=== PATIENT | male | born 1990 | race African-American/Black ===

== ENCOUNTER 2017-02-01 20:02 | Inpatient (IN) | payer OTHER ==
--- NOTE | ~2017-02-01 | DS ---
Unit #: [id number] #: [id number] Patient: MIRANDA RUBIO [id number] [facility] [address] [place] [address] [id number] I MR#: [id number] NAME: MIRANDA RUBIO ROOM: 61 Age: 26 Sex: M Admission Date: 02/01/2017 : 1990 Discharge Date: 02/03/2017 Attending Physician: Reymundo Lao M.D. DISCHARGE SUMMARY REASON FOR ADMISSION Depression and suicidal ideation. DIAGNOSTIC STUDIES CMP which was grossly within normal parameters. CBC that was within normal parameters with exception of MCA 27.9. Differential was within acceptable variation. Urinalysis was normal with exception of urobilinogen slightly elevated at 0.2. No other tests performed. HOSPITAL COURSE The patient was admitted for safety and stabilization for issues with depression. Patient's apparent stressors had been a breakup with a boyfriend recently and subsequent homelessness. It appears the patient has a history of depression in the past with intermittent treatment and has a diagnosis of HIV for which he has an upcoming appointment tomorrow 02/04/2017 to be in treatment. Patient's motivation apparently for this admission was not wanting to be homeless on the stress and he admitted so on the day of discharge. He had been placed on Wellbutrin SR 100 mg daily to help with the mood. He seemed to be tolerating it and benefiting from it. His sleep was normal. He was not having any active SI at time of discharge. Overall, patient reported mood improved and again some question of secondary gain being advanced at this point. But regardless at time of discharge patient's mood was "better." He was tolerating medications. No active SI. He had plans to follow up with [facility] for possible housing as provided by social media manager here in the hospital. DISCHARGE DIAGNOSES 1. Major depressive disorder, recurrent, severe without psychotic features. 2. HIV positive. 3. Rule out malingering. DISCHARGE INSTRUCTIONS Follow up care with community [facility] to be provided by manager social. DISCHARGE MEDICATIONS Wellbutrin SR 100 mg daily by mouth for depression. CONDITION AT DISCHARGE Improved. PROGNOSIS Unit #: [id number] #: [id number] Patient: MIRANDA RUBIO Fair. DIET AND ACTIVITY Diet is regular with activity as tolerated with compliance of treatment recommendations encouraged. Dictated by... Sagar Patino TD: 02/03/2017 12:37 JOB #: [id number] DISCHARGE SUMMARY Page 1 of 1 X Reymundo Lao MD X DISCHARGE SUMMARY
--- NOTE | ~2017-02-01 | HP ---
Unit #: [id number] #: [id number] Patient: CONRAD RUBIO [id number] [facility] [address] [place] [address] [id number] I MR#: [id number] NAME: CONRAD RUBIO ROOM: 61 Age: 26 Sex: M Admission Date: 02/01/2017 : 1990 Attending Physician: Reymundo Lao M.D. Admitting Physician: Reymundo Lao M.D. HISTORY AND PHYSICAL HISTORY OF PRESENT ILLNESS Conrad is a 26-year-old male admitted on 02/01/2017 to [facility] for suicidal ideation with a plan to overdose or cut his wrist. PAST MEDICAL HISTORY HIV PAST SURGICAL HISTORY None. SOCIAL HISTORY He is currently single, unemployed and homeless. No tobacco use. Does report occasional alcohol use and occasional marijuana use. FAMILY HISTORY Noncontributory. REVIEW OF SYSTEMS CONSTITUTIONAL: No fever or chills. HEENT: Denies any sore throat, ear pain or runny nose. CARDIOVASCULAR: Denies chest pain, irregular heart rhythm or palpitations. CHEST: Denies shortness of breath or cough. No hemoptysis. GASTROINTESTINAL: Denies nausea, vomiting, diarrhea or chronic constipation. ENDOCRINE: Denies history of increased thirst or urination. No recent significant weight loss or gain. GENITOURINARY: Denies dysuria, frequency, or hematuria. SKIN: Denies any rashes. HEMATOLOGIC: Denies history of increased bleeding or bruising. MUSCULOSKELETAL: Denies any hot, swollen joints. No generalized muscle pain. NEUROLOGIC: Denies problems with vision or speech. No frequent, severe headaches. No numbness, tingling or weakness in any extremities. Denies loss of bladder or bowel control. CURRENT MEDICATIONS None. ALLERGIES Shellfish. Unit #: [id number] #: [id number] Patient: CONRAD RUBIO PHYSICAL EXAMINATION GENERAL: Alert, oriented, in no acute distress. VITAL SIGNS: Blood pressure 111/61, heart rate 75, temperature 98.3. HEIGHT: 5 foot 11 inches. WEIGHT: 135 pounds. SKIN: Warm and dry without rash or lesion. HEENT: Normocephalic. TMs not viewed. Oral and nasal passages clear. Conjunctivae clear. PERRLA. EOMs intact. NECK: Supple without lymphadenopathy or thyromegaly. HEART: Regular rate and rhythm without murmur. LUNGS: Clear. ABDOMEN: Soft, nontender, without masses or hepatosplenomegaly. : Not done. EXTREMITIES: No evidence of cyanosis, clubbing or edema. Moves all without focal deficit. NEUROLOGICAL: Grossly within normal limits. Cranial Nerves: II: Visual sprague are intact. III, IV AND : Extraocular movements are intact. Pupils are equal, round and reactive to light. V: Facial sensation is grossly normal. VII: Facial movements and expression are normal. VIII: Auditory acuity grossly intact. IX, X: Uvula is midline. Phonation is normal. XI: Patient shrugs shoulders and turns head normally. XII: Tongue protrudes in the midline. Sensory and Motor Function: Sensory and motor sensation is grossly normal. Motor: moves all extremities well. Coordination: Gait is normal. Deep Tendon Reflexes: Intact. IMPRESSION 1. Psychiatric admission. 2. HIV positive. RECOMMENDATIONS Psychiatric, per psychiatrist. MEDICAL: I see no contraindications to participating in facility's activities. MEDICAL PROGNOSIS Good. MEDICAL CONDITION Stable. Dictated by... Sunni Bonilla TD: 02/02/2017 22:55 JOB #: [id number] Unit #: [id number] #: [id number] Patient: CONRAD RUBIO HISTORY AND PHYSICAL Page 1 of 1 X ALIE WHALEY APRN X HISTORY AND PHYSICAL
--- NOTE | ~2017-02-01 | A ---
[facility] Nutrition Therapy DATE: 02/03/17 Patient: MIRANDA RUBIO Physician: FLORES Address: [address] [place] [address] Room/Bed: [address], Zip: [place] [address] Admit Date: 02/01/17 Date of : [birth year] Height: 5 11 Weight: [phone] NUTRITIONAL ASSESSMENT: REASON: LOW BMI (18.8) PATIENT ADMITTED FOR SI PMH: HIV POSITIVE Anthropometrics: HT: 5'11", WT: 135#, BMI: 18.8 Labs: 02/03/17- BUN: 8, ALL OTHER NUTRITION LABS WNL Meds: WELLBUTRIN-SR Assessment: PATIENT IS A 26 Y/O MALE ADMITTED FOR SI. PATIENT IS CURRENTLY UNEMPLOYED, HOMELESS, AND USES ETOH AND MARIJUANA OCCASIONALLY. PATIENT STATED A FAIR APPETITE WITH NO RECENT WEIGHT LOSS. NURSING REPORTS GOOD PO INTAKES. THERE ARE NO SKIN OR GI ISSUES NOTED ATT. PATIENT IS ON A REGULAR DIET. WELLBUTRIN MAY CAUSE FLUCTUATIONS IN WEIGHT AND APPETITE. PATIENT DID NOT SCORE ANY NUTRITIONAL RISK POINTS Dx: INADEQUATE NUTRIENT INTAKE R/T CURRENT CONDITION AEB LOW BMI Intervention: REGULAR DIET, MEDS PER MD, PSYCH Monitoring, Evaluation and Goals: 1. ADEQUATE PO INTAKES >50% OF MEALS 2. PREVENT, CORRECT MICRO/MACRO NUTRIENT DEFICIENCIES 3. PROMOTE A STEADY WEIGHT GAIN TOWARDS A HEALTHY BMI OF 19-25 MONITOR: WEIGHTS, LABS, PO/FLUID INTAKES Recommendations: 1. CONTINUE REGULAR DIET TOLERATED. WILL INCREASE ENTREES TO LARGER PORTIONS D/T NUTRITIONAL NEED FOR INCREASED CALORIC INTAKE 2. ENCOURAGE ADEQUATE PO AND FLUID INTAKES 3. OBTAIN WEIGHTS ROUTINELY (EVERY 3-4 DAYS) RD TO F/U PER PROTOCOL AND PRN R/T PATIENT MILDLY COMPROMISED Respectfully, [facility] Nutrition Therapy DATE: 02/03/17 Patient: MIRANDA RUBIO Physician: FLORES Address: [address] [place] [address] Room/Bed: [address], Zip: [place] [address] Admit Date: 02/01/17 Date of : [birth year] Height: 5 11 Weight: [phone] MELISSA MURRY, RD, LD [facility] cc: client file
--- NOTE | ~2017-02-01 | PA ---
Unit #: [id number] #: [id number] Patient: MIRANDA RUBIO [id number] [place] [address] [id number] MR#: [id number] NAME: MIRANDA RUBIO ROOM: P261 Age: 26 Sex: M Admission Date: 02/01/2017 : 1990 Date of Assessment: 02/02/2017 Attending Physician: Reymundo Lao M.D. Admitting Physician: Reymundo Lao M.D. PSYCHIATRIC ASSESSMENT LOCATION [facility], [address] [place] [address], room #261, bed #1. DATE OF SERVICE 02/02/2017. INFORMANTS The patient and chart both seem reliable. CHIEF COMPLAINT "I didn't know what else to do, felt really bad and did want to hurt myself." HISTORY OF PRESENT ILLNESS This is a 26-year-old male admitted to the hospital after presenting for issues with suicidal ideation and depression. The patient has had various stressors in his life of late including losing support from the family, break-up with significant other, in the process of trying to form a new relationships, essentially being homeless, the patient has had problems in the past with depression and was treated as an adolescent inpatient here, apparently according to him, but never did any followup care and was only in therapy for a brief period of time. No issues with his substance abuse according to the patient of consistent nature. No history of actual suicide attempts, but has had intermittent SI since he was 16 and came out to his family. The patient is open to care at this time but is still planning SI but no plan. PAST PSYCHIATRIC HISTORY Treated as an adolescent on an outpatient basis with therapy medication, inpatient, but patient never took the meds though and apparently the whole treatment was very brief. Chronic history of SI but no history of SA. No outpatient care at this point. FAMILY HISTORY Significant for widespread chemical dependency and mood disorders in various members, seems like everyone in his primary family is affected with some form of disorder or other. SOCIAL HISTORY The patient is essentially homeless, very limited support through siblings and his new significant other. Currently unemployed. PAST MEDICAL HISTORY Unit #: [id number] #: [id number] Patient: MIRANDA RUBIO The patient is HIV positive and wished to be changed to [facility] in [place] on Friday. MEDICATION HISTORY None. ALLERGIES Include shellfish, substance abuse history. The patient denied any routine drugs or abuse and however did not give further details. MENTAL STATUS EXAMINATION General appearance; this is a limitedly groomed male, fairly cooperative, responsive during the interview process. Speech was clear and coherent with normal prosody. Mood was depressed with a congruent affect. Thought process and content were grossly organized and linear. No overt psychosis. Positive for vague SI, but no plan at this time. No HI. The patient's memory was grossly intact. Associations are normal. Cognitive function was at baseline. He is alert and oriented x4. Insight and judgment are poor. Assets include some support through siblings and significant other. Liabilities include homelessness, unemployed. Total support is limited. No outpatient followup in place. ADMITTING DIAGNOSES 1. Major depressive disorder, recurrent, severe without psychotic features. 2. Human immunodeficiency virus positive. PSYCHIATRIC PLAN 1. Continue the patient's admission for safety and stabilization for ongoing issues with his mood. Start the patient on Wellbutrin SR 100 mg daily to help with depression symptoms and monitor for responses. This patient educated about possible side effects. He was in agreement with the plan. 2. Encourage the patient to go to groups and activities, interact well as per rules and regulations of the unit to help with a cathartic intervention from that standpoint. 3. Basic labs were ordered. Awaiting those results. 4. Treatment goals will be most likely resolution of symptoms in a safe controlled manner with discharge planning and was likely involving community resources, and/or psychiatric social worker supervisor to help with possible housing options. ESTIMATED LENGTH OF STAY Approximately 3 to 5 days depending on the patient's progress and response to treatment. Dictated by... Reymundo Lao M.D. DYLAN/hermelinda TD: 02/02/2017 17:23 JOB #: [id number] Unit #: [id number] #: [id number] Patient: MIRANDA RUBIO PSYCHIATRIC ASSESSMENT Page 1 of 1 X Reymundo Lao MD X PSYCHIATRIC ASSESSMENT
[2017-02-02 11:20] LABS: URINE APPEARANCE CLEAR; URINE BILIRUBIN NEG (NEG); URINE BLOOD NEG (NEG); URINE COLOR YELLOW; URINE GLUCOSE NEG (NEG); URINE KETONE NEG (NEG); URINE LEUKOCYTE ESTERASE NEG (NEG); URINE NITRATE NEG (NEG); URINE PH 6.5 (5-8); URINE PROTEIN NEG (NEG); URINE SPECIFIC GRAVITY 1.011 (1.003-1.035); URINE UROBILINOGEN 0.2 MG/DL (NEG)
[2017-02-03 09:43] LABS: BASOPHIL% 0.6 % (0-2.5); EOSINOPHIL# 0.3 X10e3 (0-0.7); EOSINOPHIL% 4.3 % (0.0-7.0); HEMATOCRIT 46.8 % (38.0-50.0); HEMOGLOBIN 15.3 gm/dL (13.0-16.0); LYMPHOCYTE# 3.6 X10e3 (1.0-3.5); MEAN CELL VOLUME 85.5 FL (83-96); MEAN CORPUSCULAR HEMOGLOBIN 27.9 PG (28-34); MEAN CORPUSCULAR HGB CONC 32.7 g/dL (30-36); MEAN PLATELET VOLUME 7.7 FL (6.5-11.5); MONOCYTE# 0.8 X10e3 (0-1.0); MONOCYTE% 10.8 % (3.0-12.0); NEUTROPHIL# 2.3 X10e3 (1.5-7.1); NEUTROPHIL% 33.3 % (40-75); PLATELET COUNT 275 X10e3 (140-420); RED BLOOD COUNT 5.47 X10e (3.90-5.60); RED CELL DISTRIBUTION WIDTH 13.5 % (11.0-15.5)
[2017-02-03 09:44] LABS: DIFF IND YES
[2017-02-03 09:55] LABS: ALBUMIN SERUM 4.2 g/dL (3.5-5.0); BILIRUBIN,TOTAL 0.7 mg/dL (0.2-2.0); CALCIUM SERUM 9.6 mg/dL (8.4-10.2); CREATININE SERUM 0.8 mg/dL (0.6-1.4); POTASSIUM 4.5 mmol/L (3.5-5.1); PROTEIN TOTAL SERUM 7.9 g/dL (6.0-8.3)
[2017-02-03 10:37] LABS: PLATELET ESTIMATE NORMAL (NORMAL); TEAR DROP CELLS PRESENT
== END 2017-02-03 12:40 | disposition home or self-care (01) | DRG 885 ==
LOC: P2L 20:02
PROVIDERS: Psychiatry & Neurology Psychiatry
DX: F33.2 Major depressive disorder, recurrent severe without psychotic features (principal); R45.851 Suicidal ideations; Z21 Asymptomatic human immunodeficiency virus [HIV] infection status
CPT/HCPCS: 80053; 81003; 85025